=== PATIENT | female | born 1990 | race Caucasian/White ===

== ENCOUNTER 2018-10-05 11:41 | Emergency (ER) | payer OTHER ==
[2018-10-05 13:30] LABS: ADD UMIC YES; UR ASCORBIC ACID NEGATIVE (NEGATIVE); UR BACTERIA MODERATE /HPF (NONE SEEN); UR BILIRUBIN (Dip) NEGATIVE (NEGATIVE); UR BLOOD (Dip) 3+ mg/dL (NEGATIVE); UR CLARITY SLIGHTLY CLOUDY (CLEAR); UR COLOR YELLOW (YELLOW); UR GLUCOSE (Dip) NEGATIVE (NEGATIVE); UR KETONES (Dip) NEGATIVE (NEGATIVE); UR LEUKOCYTE ESTERASE (Dip) NEGATIVE Leu/ul (NEGATIVE); UR NITRITE (Dip) NEGATIVE (NEGATIVE); UR RBC > 182 /HPF (0-5); UR SPECIFIC GRAVITY (Dip) 1.021 (1.003-1.030); UR SQUAMOUS EPITHELIAL CELL FEW /HPF (FEW); UR TOTAL PROTEIN (Dip) 1+ mg/dl (NEGATIVE); UR UROBILINOGEN (Dip) 1+ mg/dL (NEGATIVE); UR WBC 20 /HPF (0-5)
== END 2018-10-05 13:20 | disposition left against medical advice (07) ==
LOC: FTE 11:41
DX: R10.2 Pelvic and perineal pain (principal); Z86.018 Personal history of other benign neoplasm
CPT/HCPCS: 81001; 81025; 87086; 87591; 99283